=== PATIENT | female | born 1945 | race Caucasian/White ===

== ENCOUNTER 2016-06-30 08:08 | Day surgery (SDC) | payer MEDICARE, OTHER ==
[~2016-06-30] VITALS: Ht 162.6 cm; Wt 95.7 kg
[~2016-06-30 08:08] MED LIST: ADVAIR 250/501 DISK; BREO ELLIPTA 11 EACH INH; COMBIVENT RESPIM4 GM; GLUCOPHAGE1000 MG; IPRAT-ALBUT 0.5-3 ML; LASIX20 MG PO; METFORMIN HCL500 M1 PO; MICRO-K10 MEQ PO; NORVASC10 MG; PRILOSEC20 MG PO; PRINZIDE 20/12.1 TAB; PROTONIX40 MG PO; SYNTHROID125 MCG; VITAMIN B-1000 MCG/M SQ; ZOCOR40 MG
[2016-06-30 09:39] LABS: BASOPHILS 0.6 % (0-2); EOSINOPHILS 2.8 % (0-7); HEMATOCRIT 37.2 % (36.0-48.0); HEMOGLOBIN 11.2 g/dL (12-16); IMMATURE GRANULOCYTES 0.2 % (0-5); LYMPHOCYTES 25.4 % (15-50); MCH 29.4 pg (26.0-34.0); MCHC 30.1 g/dL (31.0-37.0); MCV 97.6 fL (80.0-100.0); MEAN PLATELET VOLUME 9.9 fL (7.4-10.4); MONOCYTES 8.3 % (2-11); NEUTROPHILS 62.7 % (40-80); PLATELET COUNT 201 10x3/uL (130-400); RBC 3.81 10x6/uL (4.00-5.40); RDW 13.7 % (11.5-14.5); WBC 4.9 10x3/uL (4.8-10.8)
[2016-06-30 10:09] LABS: ANION GAP 12.6 mmol/L (8-16); CALCIUM 9.2 mg/dL (8.5-10.1); CARBON DIOXIDE 27.5 mmol/L (21.0-32.0); CREATININE - SERUM 1.4 mg/dL (0.6-1.3); POTASSIUM - SERUM 4.1 mmol/L (3.5-5.1)
[2016-06-30 11:30] VITALS: BP 154/65; Ht 162.6 cm; Wt 95.7 kg
--- NOTE | 2016-06-30 11:40 | NUR ---
1100-PORT ACCESSED WITH 20 FREGOSO NEEDLE.
--- NOTE | 2016-06-30 13:21 | NUR ---
1235-RECD FROM GI LAB. ALERT, RESP WITH EASE. O2 ON AT 2L PER NC. 1245-FULL LIQUIDS SERVED. 1305-UP TO BATHROOM, VOIDED. 1310-PORT FLUSHED WITH 5CC HEP FLUSH. PATIENT DRESSED AND DISCHARGE INSTRUCTIONS REVIEWED. 1320-D/C HOME VIA WHEELCHAIR.
--- NOTE | 2016-07-02 15:57 | OP ---
PATIENT NAME: REESE CARRERA MEDICAL RECORD: [id number] :41 LOCATION:D.OPS ADMISSION DATE: SURGEON: ANTHONY NEWMAN DO DATE OF OPERATION: 06/30/2016 PROCEDURE: Colonoscopy with cold forcep biopsy polypectomy. INDICATIONS FOR PROCEDURE: Surveillance with a history of colon cancer in 2011, status post colon resection. SCOPE: Olympus video pediatric colonoscope. MEDICATIONS: Propofol 230 mg IV per anesthesia. ESTIMATED BLOOD LOSS: Minimal. WITHDRAWAL TIME: 12 minutes. COMPLICATIONS: None. FINDINGS: Informed consent was given. The patient was made comfortable with the above medication. After reaching an adequate level of sedation by slow IV push, the patient was placed on her left side. A digital rectal examination was performed and was normal. The endoscope was then advanced under direct visualization through the anus to the cecum/ileocolonic anastomosis. The anastomosis appeared healthy without evidence of polyps or tumors or ulcerations. There was some granularity around the site consistent with an anastomosis. Near this site, there was a polyp, which was diminutive and measuring approximately 3-mm. It was removed with cold forceps completely. There were no other polyps identified on this examination. There were a few small diverticuli noted on the left side of the colon. Retroflexion was performed in the rectum. The scope was withdrawn from the patient. The patient tolerated the procedure well and there were no complications. FINDINGS: 1. Status post colon resection with ileocolonic anastomosis due to colon cancer resection. The anastomosis appeared healthy without further polypoid tissue. 2. Small, benign appearing sessile polyp measuring 3-mm in size, removed with cold forceps. 3. Mild diverticulosis of the left side of the colon. PLAN AND RECOMMENDATIONS: 1. Discharge home when recovery parameters are met. 2. High fiber diet. 3. Continue current medications. 4. Recall colonoscopy in 2 years for continued surveillance. 5. Follow up on biopsy specimen results. TRANSINT:[id number] Voice Confirmation ID: [id number] DOCUMENT ID: [id number] OPERATIVE REPORT [id number] REESE CARRERA ANTHONY NEWMAN DO at 1557 CC: [id number] DICTATION DATE: 06/30/16 1225 ROOFER GYPSUM: 06/30/16 2149 [facility] 06/30/16 [place] [id number] [facility] [place] [address]
== END 2016-06-30 13:20 | disposition home or self-care (01) ==
LOC: D.OPS 08:08
PROVIDERS: Anesthesiology
DX: Z85.038 Personal history of other malignant neoplasm of large intestine (principal); J44.9 Chronic obstructive pulmonary disease, unspecified; G47.30 Sleep apnea, unspecified; I10 Essential (primary) hypertension; K21.9 Gastro-esophageal reflux disease without esophagitis; E11.9 Type 2 diabetes mellitus without complications; Z01.812 Encounter for preprocedural laboratory examination; R94.31 Abnormal electrocardiogram [ECG] [EKG]; D64.9 Anemia, unspecified

== ENCOUNTER 2018-11-08 10:40 | Day surgery (SDC) | payer MEDICARE, BC ==
[~2018-11-08] VITALS: Ht 162.6 cm; Wt 107.3 kg
[2018-11-08 11:10] LABS: BASOPHILS 0.6 % (0-2); EOSINOPHILS 2.5 % (0-7); HEMATOCRIT 33.8 % (36.0-48.0); HEMOGLOBIN 10.5 g/dL (12-16); IMMATURE GRANULOCYTES 0.2 % (0-5); LYMPHOCYTES 26.8 % (15-50); MCH 29.8 pg (26.0-34.0); MCHC 31.1 g/dL (31.0-37.0); MEAN PLATELET VOLUME 10.5 fL (7.4-10.4); MONOCYTES 8.4 % (2-11); NEUTROPHILS 61.5 % (40-80); PLATELET COUNT 202 10x3/uL (130-400); RBC 3.52 10x6/uL (4.00-5.40); WBC 5.2 10x3/uL (4.8-10.8)
[2018-11-08 11:12] LABS: ANION GAP 14.8 mmol/L (8-16); APTT 27.6 SECONDS (22.8-39.4); CALCIUM 8.9 mg/dL (8.5-10.1); CARBON DIOXIDE 23.5 mmol/L (21.0-32.0); CREATININE - SERUM 1.5 mg/dL (0.6-1.3); INR 1.08 (0.85-1.17); POTASSIUM - SERUM 4.3 mmol/L (3.5-5.1); PROTIME 13.5 SECONDS (11.6-15.0)
[2018-11-08] MEDS ORDERED: TRELEGY ELLIPT1 EACH INH (11:18)
[2018-11-08] MEDS ORDERED: DOXEPIN HCL10 MG PO (11:21)
[2018-11-08 11:26] VITALS: Ht 162.6 cm; Wt 107.3 kg
[2018-11-08] MEDS ORDERED: CARDURA1 MG PO (11:46)
[2018-11-08] MEDS ORDERED: LOPRESSOR25 MG PO (11:46)
--- NOTE | 2018-11-08 14:58 | NUR ---
1436 PT IS SITTING ON SIDE OF BED WITH SLACKS ON. STATES SHE IS READY TO BE DISCHARGED AND GO OUT TO EAT. VERY HAPPY AND CHEERFUL. IV DC'D. CATHETER TIP INTACT. HELD PRESSURE UNTIL BLEEDING STOPPED. BANDAID APPLIED.
--- NOTE | 2018-11-10 16:44 | OP ---
PATIENT NAME: REESE CARRERA MEDICAL RECORD: [id number] :41 LOCATION:D.OPS ADMISSION DATE: SURGEON: ANTHONY NEWMAN DO DATE OF OPERATION: 11/08/2018 PROCEDURE: Colonoscopy with polypectomy. INDICATIONS FOR PROCEDURE: History of colon cancer in 2011, status post colon resection. This is a 2-year recall for surveillance. SCOPE: Olympus video pediatric colonoscope. MEDICATIONS: Propofol 600 mg IV per anesthesia. WITHDRAWAL TIME: 16 minutes. ESTIMATED BLOOD LOSS: Minimal. COMPLICATIONS: None. FINDINGS: Informed consent was given. The patient was made comfortable with the above medication. After reaching an adequate level of sedation by slow IV push, the patient was placed on her left side. A digital rectal examination performed and was normal. The endoscope was then advanced under direct visualization through the rectum to the anastomosis. The endoscope was slowly withdrawn and mucosa was carefully examined. The prep quality was good. There were 2 polyps visualized on today's examination. They were both located in the transverse colon. They were benign appearing and sessile and measured approximately 3-4 mm in diameter. They were both removed using hot snare in 1 piece and retrieved. The anastomosis was evaluated and appeared normal. There was evidence of mild diverticulosis involving the distal descending and sigmoid colon. There was no evidence of diverticulitis. Retroflexion was performed in the rectum with normal appearing rectal wall. The endoscope was withdrawn from the patient. The patient tolerated the procedure well and there were no complications. IMPRESSION: 1. Two polyps as described above, removed using a hot snare. 2. Mild diverticulosis of the descending and sigmoid colon. 3. Prior intervention in the form of a colon resection with a normal appearing anastomosis. PLAN AND RECOMMENDATIONS: 1. Discharge home when recovery parameters are met. 2. High fiber diet. 3. Continue current medications. 4. Recall in 3 years for continued surveillance, personal history of polyps and colon cancer, status post resection. That would likely be the patient's last colonoscopy when weighing the risks and benefits of the procedure. TRANSINT:[id number] Voice Confirmation ID: [id number] DOCUMENT ID: [id number] OPERATIVE REPORT [id number] REESE CARRERA ANTHONY NEWMAN DO at [id number] CC: [id number] DICTATION DATE: 11/08/18 1402 [facility] COORDINATOR: 11/09/18 0102 [facility] 11/08/18 [facility] [address] [facility] [place] [address]
== END 2018-11-08 14:47 | disposition home or self-care (01) ==
LOC: D.OPS 10:40
PROVIDERS: Anesthesiology; ATTEND Internal Medicine Gastroenterology
DX: Z12.11 Encounter for screening for malignant neoplasm of colon (principal); K63.5 Polyp of colon; K57.90 Diverticulosis of intestine, part unspecified, without perforation or abscess without bleeding

== ENCOUNTER → 2020-07-30 09:59 | Outpatient (CLI) | payer MEDICARE ==
[2018-11-08 11:26] VITALS: BMI 40.6
[~2020-07-30 09:59] MED LIST changes: +CARDURA1 MG PO; +DOXEPIN HCL10 MG PO; +LOPRESSOR25 MG PO; +TRELEGY ELLIPT1 EACH INH
== END | disposition home or self-care (01) ==
LOC: D.CT 09:59
PROVIDERS: ATTEND Internal Medicine Hematology & Oncology
DX: C34.90 Malignant neoplasm of unspecified part of unspecified bronchus or lung (principal)